=== PATIENT | female | born 1975 | race Caucasian/White ===

== ENCOUNTER → 2018-04-26 | Outpatient (CLI) | payer BC ==
--- NOTE | 2018-04-26 13:07 | MM ---
Reason for exam: screening (asymptomatic). Last mammogram was performed 3 years and 7 months ago. History: Patient has history of other cancer at age 37. Family history of breast cancer in father at age 55. Taking hormonal contraceptives for 20 years. Physical Findings: A clinical breast exam by your physician is recommended on an annual basis and results should be correlated with mammographic findings. MG Screening Mammo w CAD Bilateral CC and MLO view(s) were taken. Prior study comparison: September 23, 2014, bilateral MG screening mammo w CAD. The breast tissue is heterogeneously dense. This may lower the sensitivity of mammography. No suspicious calcifications are seen. Focal asymmetry central upper left breast 5.4cm from nipple. This finding is changed when compared with previous exams. ASSESSMENT: Incomplete: need additional imaging evaluation, BI-RAD 0 RECOMMENDATION: Special view mammogram of the left breast. If lesion persists on supplemental views, image directed ultrasound is recommended. [facility] will attempt to contact patient to return for supplemental views and ultrasound if indicated.
== END ==
LOC: RADMAMWWP 08:31
PROVIDERS: ATTEND Obstetrics & Gynecology
DX: Z12.31 Encounter for screening mammogram for malignant neoplasm of breast (principal); Z80.3 Family history of malignant neoplasm of breast
CPT/HCPCS: 77067

== ENCOUNTER → 2018-04-30 | Outpatient (CLI) | payer BC ==
--- NOTE | 2018-04-30 13:08 | MM ---
Reason for exam: additional evaluation requested from abnormal screening. Last mammogram was performed less than 1 month ago. History: Patient has history of other cancer at age 37. Family history of breast cancer in father at age 55. Taking hormonal contraceptives for 20 years. Physical Findings: Nurse Summary: 1cm nodule in the right breast at 10 o'clock (nurse mj). MG Work Up Mamm w CAD LT Spot compression CC and spot compression MLO view(s) were taken of the left breast. Prior study comparison: April 26, 2018, bilateral MG screening mammo w CAD. September 23, 2014, bilateral MG screening mammo w CAD. The breast tissue is heterogeneously dense. This may lower the sensitivity of mammography. Although distortion appears improved on spot CC precautionary ultrasound of the lateral left breast will be performed. These results were verbally communicated with the patient and result sheet given to the patient on 04/30/18. ASSESSMENT: Incomplete: need additional imaging evaluation, BI-RAD 0 RECOMMENDATION: Ultrasound of both breasts. (right palpable, left lateral)
--- NOTE | 2018-04-30 13:11 | USB ---
Reason for exam: additional evaluation requested from abnormal screening. History: Patient has history of other cancer at age 37. Family history of breast cancer in father at age 55. Taking hormonal contraceptives for 20 years. US Breast Workup Limited ONESIMO Right limited breast ultrasound including focal area of concern, retroareolar and axilla demonstrates a 6 x 3 x 6mm lesion at 9 o'clock, a 35 x 9 x 29mm cystic cluster at 10 o'clock BB and a 5 x 4 x 5mm mixed lesion at 12 o'clock. Left limited breast ultrasound including focal area of concern, retroareolar and axilla demonstrates a 5 x 5 x 3mm cystic cluster too small to characterize at 12 o'clock, a 20 x 9 x 18mm cystic lesion at 2 o'clock and a 6 x 3 x 4mm cystic lesion at the posterior nipple. All appear as benign cysts. These results were verbally communicated with the patient and result sheet given to the patient on 04/30/18. ASSESSMENT: Benign, BI-RAD 2 RECOMMENDATION: Return to routine screening mammogram schedule for both breasts.
== END | disposition home or self-care (01) ==
LOC: RADMAMWWP 08:58
PROVIDERS: ATTEND Obstetrics & Gynecology
DX: R92.8 Other abnormal and inconclusive findings on diagnostic imaging of breast (principal)
CPT/HCPCS: 77065

== ENCOUNTER → 2019-05-02 | Outpatient (CLI) | payer BC ==
--- NOTE | 2019-05-05 13:57 | MM ---
Reason for exam: screening (asymptomatic). Last mammogram was performed 1 year ago. History: Patient has history of other cancer at age 37. Family history of breast cancer in father at age 55. Taking hormonal contraceptives for 20 years. Physical Findings: A clinical breast exam by your physician is recommended on an annual basis and results should be correlated with mammographic findings. MG Screening Mammo w CAD Bilateral CC, MLO, and XCCL view(s) were taken. Prior study comparison: April 30, 2018, left breast MG work up mamm w CAD LT. April 26, 2018, bilateral MG screening mammo w CAD. Stable left upper outer global asymmetric density. No significant changes when compared with prior studies. ASSESSMENT: Negative, BI-RAD 1 RECOMMENDATION: Routine screening mammogram of both breasts in 1 year. The patient may qualify for alternating screening with breast MRI if lifetime risk is greater than 20%.
== END | disposition home or self-care (01) ==
LOC: RADMAMWWP 14:25
PROVIDERS: ATTEND Obstetrics & Gynecology
DX: Z12.31 Encounter for screening mammogram for malignant neoplasm of breast (principal)
CPT/HCPCS: 77067

== ENCOUNTER → 2019-12-18 | Outpatient (CLI) | payer BC ==
--- NOTE | 2019-12-22 09:05 | MM ---
Reason for exam: clinical finding. Last mammogram was performed 8 months ago. History: Patient has history of other cancer at age 37. Family history of breast cancer in father at age 55. Took hormonal contraceptives for 20 years. Indicated problem(s): lump or thickening in the left breast. Physical Findings: Nurse Summary: 2cm nodule in the left breast at 2 o'clock (nurse mj). MG 3D Diag Mammo W/Cad LT CC, MLO, and XCCL view(s) were taken of the left breast. Prior study comparison: May 02, 2019, bilateral MG screening mammo w CAD. April 30, 2018, left breast MG work up mamm w CAD LT. The breast tissue is heterogeneously dense. This may lower the sensitivity of mammography. Finding: There is a 40 mm circumscribed oval mass in the upper outer quadrant, posterior position of the left breast at areas of CT and palpable concern. These results were verbally communicated with the patient and result sheet given to the patient on 12/18/19. ASSESSMENT: Incomplete: need additional imaging evaluation, BI-RAD 0 RECOMMENDATION: Ultrasound of the left breast.
--- NOTE | 2019-12-22 09:06 | USB ---
Reason for exam: additional evaluation requested from abnormal screening. History: Patient has history of other cancer at age 37. Family history of breast cancer in father at age 55. Took hormonal contraceptives for 20 years. US Breast Limited LT Left limited breast ultrasound including focal area of concern, retroareolar and axilla demonstrates a 2.8 x 1.6 x 3.5cm lobular, cystic lesion at 2 o'clock BB increased in size from 2018 study with septation and a 1.0cm lymph node at the axilla tail. These results were verbally communicated with the patient and result sheet given to the patient on 12/18/19. ASSESSMENT: Benign, BI-RAD 2 RECOMMENDATION: Return to routine screening mammogram schedule for both breasts. Back on schedule for May 2020.
== END | disposition home or self-care (01) ==
LOC: RADMAMWWP 12:55
PROVIDERS: ATTEND Obstetrics & Gynecology
DX: N63.20 Unspecified lump in the left breast, unspecified quadrant (principal); R92.8 Other abnormal and inconclusive findings on diagnostic imaging of breast
CPT/HCPCS: 77061; 77065

== ENCOUNTER → 2020-05-24 | Outpatient (CLI) | payer BC ==
--- NOTE | 2020-05-26 09:05 | MM ---
Reason for exam: screening (asymptomatic). Last mammogram was performed 5 months ago. History: Patient has history of other cancer at age 37. Family history of breast cancer in father at age 55. Took hormonal contraceptives for 20 years. Physical Findings: A clinical breast exam by your physician is recommended on an annual basis and results should be correlated with mammographic findings. MG 3D Screening Mammo W/Cad Bilateral CC and MLO view(s) were taken. XCCL view(s) were taken of the left breast. Prior study comparison: December 18, 2019, left breast MG 3d diag mammo w/cad LT. May 02, 2019, bilateral MG screening mammo w CAD. The breast tissue is heterogeneously dense. This may lower the sensitivity of mammography. New nodularity in the anterior aspect of both breasts, two on the right and one on the left. Large 4.0cm cyst posterior 2 o'clock left breast is unchanged. ASSESSMENT: Incomplete: need additional imaging evaluation, BI-RAD 0 RECOMMENDATION: Special view mammogram of both breasts. (3D) Ultrasound of both breasts. [facility] will attempt to contact patient to return for supplemental views and ultrasound.
== END | disposition home or self-care (01) ==
LOC: RADMAMWWP 16:29
PROVIDERS: ATTEND Obstetrics & Gynecology
DX: Z12.31 Encounter for screening mammogram for malignant neoplasm of breast (principal); Z80.3 Family history of malignant neoplasm of breast
CPT/HCPCS: 77063; 77067

== ENCOUNTER → 2020-06-10 | Outpatient (CLI) | payer BC ==
--- NOTE | 2020-06-11 10:36 | MM ---
Reason for exam: additional evaluation requested from abnormal screening. Last mammogram was performed 1 month ago. History: Patient has history of other cancer at age 37. Family history of breast cancer in father at age 55. Took hormonal contraceptives for 20 years. Physical Findings: Nurse did not find any significant physical abnormalities on exam. MG 3D Work Up W/Cad ONESIMO Bilateral spot compression CC, spot compression MLO, and LM view(s) were taken. Prior study comparison: May 24, 2020, bilateral MG 3d screening mammo w/cad. December 18, 2019, left breast MG 3d diag mammo w/cad LT. Finding: There is a 10 mm equal density (isodense), circumscribed oval mass located 2 cm from the nipple in the anterior position of the right breast. There is a 2.7cm density at 2 o'clock 8cm from the nipple. These results were verbally communicated with the patient and result sheet given to the patient on 06/10/20. ASSESSMENT: Incomplete: need additional imaging evaluation, BI-RAD 0 RECOMMENDATION: Ultrasound of both breasts.
--- NOTE | 2020-06-11 10:38 | USB ---
Reason for exam: additional evaluation requested from abnormal screening. History: Patient has history of other cancer at age 37. Family history of breast cancer in father at age 55. Took hormonal contraceptives for 20 years. US Breast Workup Limited ONESIMO Right limited breast ultrasound including focal area of concern, retroareolar and axilla demonstrates a 0.7 x 0.4 x 0.6cm cystic cluster at 12 o'clock. Left limited breast ultrasound including focal area of concern, retroareolar and axilla demonstrates a 2.8 x 1.6 x 2.7cm cystic cluster at 2 o'clock and a 1.1 x 0.6 x 0.7cm cystic lesion at 3 o'clock. These results were verbally communicated with the patient and result sheet given to the patient on 06/10/20. ASSESSMENT: Benign, BI-RAD 2 RECOMMENDATION: Return to routine screening mammogram schedule for both breasts.
== END | disposition home or self-care (01) ==
LOC: RADMAMWWP 14:53
PROVIDERS: ATTEND Obstetrics & Gynecology
DX: R92.8 Other abnormal and inconclusive findings on diagnostic imaging of breast (principal)
CPT/HCPCS: 77062; 77066

== ENCOUNTER → 2021-06-07 | Outpatient (CLI) | payer BC ==
--- NOTE | 2021-06-09 12:13 | MM ---
Reason for exam: screening (asymptomatic). Last mammogram was performed 1 year ago. History: Patient has history of other cancer at age 37. Family history of breast cancer in father at age 55. Took hormonal contraceptives for 20 years. Physical Findings: A clinical breast exam by your physician is recommended on an annual basis and results should be correlated with mammographic findings. MG 3D Screening Mammo W/Cad Bilateral CC and MLO view(s) were taken. Prior study comparison: May 24, 2020, bilateral MG 3d screening mammo w/cad. December 18, 2019, left breast MG 3d diag mammo w/cad LT. May 02, 2019, bilateral MG screening mammo w CAD. April 26, 2018, bilateral MG screening mammo w CAD. The breast tissue is heterogeneously dense. This may lower the sensitivity of mammography. There is chronic nodularity in the right breast. No significant changes when compared with prior studies. ASSESSMENT: Benign, BI-RAD 2 RECOMMENDATION: Routine screening mammogram of both breasts in 1 year.
== END | disposition home or self-care (01) ==
LOC: RADMAMWWP 15:03
PROVIDERS: ATTEND Obstetrics & Gynecology
DX: Z12.31 Encounter for screening mammogram for malignant neoplasm of breast (principal); Z80.3 Family history of malignant neoplasm of breast
CPT/HCPCS: 77063; 77067

== ENCOUNTER → 2022-06-08 | Outpatient (CLI) | payer BC ==
--- NOTE | 2022-06-09 09:03 | MM ---
Reason for Exam: Screening (asymptomatic). Last screening mammogram was performed 12 month(s) ago. Patient History: Menarche at age 14. First Full-Term at age 29. Premenopausal. Other cancer, age 37. Hormonal Contraceptives for 20 years until age 44. Father had breast cancer, age 55. Last menstrual period: 06/02/2022 Risk Values: Chiquis 5 year model risk: 0.9%. NCI Lifetime model risk: 10.7%. Prior Study Comparison: 05/24/2020 Bilateral Screening Mammogram, [facility]. 06/10/2020 Bilateral Diagnostic Mammogram, [facility]. 06/07/2021 Bilateral Screening Mammogram, [facility]. Tissue Density: The breast tissue is heterogeneously dense. This may lower the sensitivity of mammography. Findings: Analyzed By CAD. There is no suspicious group of microcalcifications in either breast. There is a well-circumscribed ovoid 1.5 cm mass within the upper outer right breast at middle depth with additional 0.7 cm circumscribed round mass within the upper outer right breast anterior depth. There is a high density well-circumscribed ovoid mass within the upper outer left breast measuring 0.8 cm at middle depth. Overall Assessment: Incomplete: need additional imaging evaluation, BI-RAD 0 Management: Diagnostic Breast Ultrasound of both breasts. A clinical breast exam by your physician is recommended on an annual basis and results should be correlated with mammographic findings. [facility] will attempt to contact patient to return for supplemental views and ultrasound if indicated. Electronically signed and approved by: Claude Quarles D.O.
== END | disposition home or self-care (01) ==
LOC: RADMAMWWP 15:51
PROVIDERS: ATTEND Obstetrics & Gynecology
DX: Z12.31 Encounter for screening mammogram for malignant neoplasm of breast (principal); Z80.3 Family history of malignant neoplasm of breast
CPT/HCPCS: 77063; 77067

== ENCOUNTER → 2022-06-21 | Outpatient (CLI) | payer BC ==
--- NOTE | 2022-06-21 11:15 | USB ---
Reason for Exam: Additional evaluation requested from abnormal screening. Patient History: Menarche at age 14. First Full-Term at age 29. Premenopausal. Other cancer, age 37. Hormonal Contraceptives for 20 years until age 44. Father had breast cancer, age 55. Risk Values: Chiquis 5 year model risk: 0.9%. NCI Lifetime model risk: 10.7%. Technique: Method: Targeted. Patient Position: Supine. Prior Study Comparison: 06/10/2020 Bilateral Diagnostic Mammogram, [facility]. 06/07/2021 Bilateral Screening Mammogram, [facility]. 06/08/2022 Bilateral MG 3D screening mammo w/cad, [facility]. Findings: The upper outer quadrant of both breasts, the axilla of both breasts and the retroareolar of both breasts were scanned. Right 900 8CFN there is a 1.6 x 1.5 x 0.6 ovoid simple cyst. Right 1200 3CFN 0.9 x 0.6 x 1.0cm simple cyst. Left 200 7CFN there is a 0.7 x 0.6 x 0.6cm simple cyst. At the 12:00 position 3 cm from the nipple there is a benign-appearing cyst measuring 0.9 x 0.6 x 1.0 cm. This is larger than comparison. At the 9:00 position 8 cm nipple there is a benign-appearing simple cyst measuring 1.5 x 0.6 x 1.6 cm. This is not within the [id number] on the prior study. Within the left breast at the 2:00 position 7 cm the nipple is a simple appearing cyst measuring 0.7 x 0.6 x 0.6 cm. Previous large cysts in this region are not evident. Findings correspond to mammographic findings. Overall Assessment: Benign, BI-RAD 2 Management: Screening Mammogram of both breasts in 1 year. A clinical breast exam by your physician is recommended on an annual basis and results should be correlated with mammographic findings. This exam should not preclude additional follow-up of suspicious palpable abnormalities. Results were given to the patient verbally at the time of exam. Electronically signed and approved by: Aftab Higgins D.O. Radiologis
== END | disposition home or self-care (01) ==
LOC: RADUSWWP 10:07
PROVIDERS: ATTEND Obstetrics & Gynecology
DX: R92.8 Other abnormal and inconclusive findings on diagnostic imaging of breast (principal); Z80.3 Family history of malignant neoplasm of breast

== ENCOUNTER → 2023-03-06 | Outpatient (CLI) | payer BC | END | disposition home or self-care (01) | LOC: LABWHC1 09:43 | PROVIDERS: ATTEND Obstetrics & Gynecology | DX: Z53.9 Procedure and treatment not carried out, unspecified reason (principal) ==

== ENCOUNTER 2023-03-14 05:42 | Inpatient (IN) | payer BC ==
[2023-03-12 14:31] VITALS: BMI 32.3
--- NOTE | 2023-03-13 12:30 | P.HPOB ---
History of Present Illness H&P Date: 03/13/23 Chief Complaint: Persistent dysfunctional uterine bleeding, uterine fibroids This patient is a pleasant 47-year-old 2 para 2 female whose had a long history of dysfunctional uterine bleeding and known uterine fibroids. Patient has had an endometrial ablation in 2016 that initially helped her bleeding however fibroids have persisted and the bleeding has become intolerable. She is also tried oral contraceptives again without relief. Bleeding is such that she's become anemic and required an iron transfusion. Most recent ultrasound done in August of this year showed the uterus to be 13 week size with 2 large fibroids 6.8 cm and 5 cm both that appear to be in the fundal region. 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 There is been no evidence of recurrence since that time. Review of Systems Genitourinary: Reports as per HPI, Reports abnormal vaginal bleeding Menstruation: Reports as per HPI, Reports menses 8 or > days, Reports menses variable Past Medical History Past Medical History: Blood Disorder, Cancer, Thyroid Disorder Additional Past Medical History / Comment(s): Hx Skin Cancer/[place] Fibroid Sarcoma 2013, with removal and radiation. Hx Anemia, had Iron Infusion Aug 2022. History of Any Multi-Drug Resistant Organisms: None Reported Additional Past Surgical History / Comment(s): Removal of Dermatofibrosarcoma on abdomen. Past Anesthesia/Blood Transfusion Reactions: No Reported Reaction Past Psychological History: No Psychological Hx Reported Smoking Status: Never smoker Past Alcohol Use History: None Reported, Rare Past Drug Use History: None Reported - Past Family History Mother Family Medical History: No Reported History Father Family Medical History: Cancer Medications and Allergies Home Medications Medication Instructions Recorded Confirmed Type Levothyroxine Sodium [Synthroid] 75 mcg PO QAM 03/12/23 03/12/23 History Allergies Allergy/AdvReac Type Severity Reaction Status Date / Time No Known Allergies Allergy Verified 03/12/23 14:18 Exam - OBG Physical Exam Abdomen: bowel sounds normal, no diffuse tenderness, no bruit present, no guarding noted, no hepatomegaly, no splenomegaly, no mass Vulva: both: normal Vagina: normal moisture, no discharge Cervix: no lesion, no discharge Uterus: enlarged (Uterus is approximately 13 week size) Results Ultrasound as above. Assessment and Plan Assessment: This is a pleasant 47-year-old 2 para 2 female with large uterine fibroids, refractory dysfunctional bleeding despite NovaSure endometrial ablation and oral contraceptives who presents for definitive surgery. Patient's fibroids are large and due to her previous radiation therapy to her abdomen she'll require abdominal hysterectomy. She also understands that we need to do a vertical skin incision because the area of her radiation therapy is on the left lower quadrant where we would normally put a Pfannenstiel skin incision. Plan at this time is vertical skin incision with total abdominal hysterectomy and bilateral salpingectomy. We discussed her ovaries and she wishes to proceed with ovarian conservation at this time unless they appear abnormal. I had a long discussion with her about the risks of the surgery including risks of infection, bleeding, possible injury to bowel, bladder, ureters, and/or other organs. She understands if she had any injury to urinary tract she require prolonged catheterization or more surgery. She also understands she is at increased risk of nonhealing incision due to the radiation therapy. We are going to do our best to do an incision vertically therefore she has a higher chance of this healing, this is not in the area of the radiation. Patient also understands increased risk of DVT and pulmonary embolism. All the patient's questions are answered and a written consent is obtained. (1) Dysfunctional uterine bleeding Status: Acute Code(s): N93.8 - OTHER SPECIFIED ABNORMAL UTERINE AND VAGINAL BLEEDING SNOMED Code(s): 18287291657369 (2) Secondary anemia Status: Acute Code(s): D64.9 - ANEMIA, UNSPECIFIED SNOMED Code(s): 833318940 (3) Uterine fibroid Status: Acute Code(s): D25.9 - LEIOMYOMA OF UTERUS, UNSPECIFIED SNOMED Code(s): 92540807
[2023-03-14] MEDS ORDERED: droPERidol 5 MG/2 ML VIAL IVP ONE (06:01)
[2023-03-14] MEDS ORDERED: ONDANSETRON 4 MG/2 ML VIAL IVP ONE (06:01)
[2023-03-14] MEDS ORDERED: LIDOCAINE 1% (10MG/ML) FOR IV START INTRADERMA PRN (06:01)
[2023-03-14] MEDS ORDERED: SCOPOLAMINE 1 MG/72 HR PATCH TRANSDERM ONE (06:01)
[2023-03-14] MEDS ORDERED: DEXAMETHASONE SOD PHOSPHATE 4 MG/ML 1 ML VIAL IV ONE (06:01)
[2023-03-14] MEDS ORDERED: LACTATED RINGERS 1,000 ML IV SCH (06:01)
[2023-03-14] MEDS ORDERED: MIDAZOLAM 2 MG/2 ML VIAL IVP ONE (07:00)
[2023-03-14] MEDS ORDERED: fentaNYL (PF) 50 MCG/ML 2 ML AMP IVP ONE (07:00)
[2023-03-14] MEDS ORDERED: HYDROmorphone 0.5 MG/0.5 ML SYRINGE IVP PRN (07:00)
[2023-03-14] MEDS ORDERED: NEOSTIGMINE 1 MG/ML 10 ML VIAL ONE (07:28)
[2023-03-14] MEDS ORDERED: MIDAZOLAM 2 MG/2 ML VIAL ONE (07:28)
[2023-03-14] MEDS ORDERED: SUCCINYLCHOLINE CHLORIDE 200 MG/10 ML VIAL IV ONE (07:28)
[2023-03-14] MEDS ORDERED: KETAMINE 10 MG/ML 20 ML VIAL ONE (07:28)
[2023-03-14] MEDS ORDERED: fentaNYL (PF) 50 MCG/ML 2 ML AMP ONE (07:28)
[2023-03-14] MEDS ORDERED: ROCURONIUM 10 MG/ML (5 ML VIAL) IV ONE (07:28)
[2023-03-14] MEDS ORDERED: PROPOFOL 10 MG/ML 20 ML VIAL IV ONE (07:28)
[2023-03-14] MEDS ORDERED: LIDOCAINE 2% INJ 20 MG/ML (2 ML VIAL) ONE (07:28)
[2023-03-14] MEDS ORDERED: GLYCOPYRROLATE 0.2 MG/ML 2 ML VIAL ONE (07:28)
[2023-03-14] MEDS ORDERED: MORPHINE SULFATE (PF) 0.3 MG/0.3 ML SYR ONE (07:28)
[2023-03-14] MEDS ORDERED: LACTATED RINGERS 1,000 ML IV ONE (08:17)
[2023-03-14] MEDS ORDERED: diphenhydrAMINE 50 MG/ML 1 ML VIAL IVP PRN (10:19)
[2023-03-14] MEDS ORDERED: ONDANSETRON 4 MG/2 ML VIAL IVP PRN (10:19)
[2023-03-14] MEDS ORDERED: SIMETHICONE 80 MG CHEWABLE PO PRN (10:19)
[2023-03-14] MEDS ORDERED: Acetaminophen-Codeine 300-30mg TAB PO PRN (10:19)
[2023-03-14] MEDS: KETOROLAC 15 MG/ML 1 ML VIAL IVP PRN ×3 (10:25→21:57)
--- NOTE | 2023-03-14 11:28 | P.ANPRN ---
Procedure Note - Anesthesia - Epidural/Spinal Spinal Time Out Performed: Yes Date of Procedure: 03/14/23 Procedure Start Time: 06:59 Procedure Stop Time: 07:04 Location of Patient: PreOp Indication: Acute Post-Operative Pain, Requested by Surgeon (zaid) Sedation Type: Sedate with meaningful contact maintained Preparation: Sterile Prep Number of Attempts: 1 Position: Sitting Catheter: None Needle Guage: 25 Injectate: fentanyl 25mcg duramorph 300mg Blood Aspirated: No Pain Paresthesia on Injection Noted: No Events: Uneventful and Well Tolerated
--- NOTE | 2023-03-14 12:33 | P.OP ---
Date of Procedure: 03/14/23 Preoperative Diagnosis: #1: Refractory dysfunctional bleeding. #2: Large uterine fibroids. #3: Previous radiation to lower abdomen. #4: History of secondary anemia Postoperative Diagnosis: Same Procedure(s) Performed: Exploratory laparotomy with total abdominal hysterectomy Anesthesia: JOSE Surgeon: Bhavik Webb Estimated Blood Loss (ml): 1,000 Pathology: other (Uterus with detached cervix) Condition: stable Disposition: floor Indications for Procedure: Please see dictated H&P for intimate details of this patient's admission. In brief summary this is a pleasant 47-year-old 2 para 2 female with long- standing dysfunctional bleeding and known uterine fibroids that have been refractory to conservative measures including endometrial ablation and oral contraceptives. Patient's been having such abnormal bleeding that she required iron transfusion for anemia. She is also having pain from the large uterus is requesting definitive surgery at this time. 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 She also understands the risks of the surgery including risks of infection, bleeding, possible injury bowel, bladder, ureter, vessels, and other organs. All the patient's questions are answered and a written consent is obtained. Operative Findings: This patient had a 14 week size uterus with numerous fibroids both in the fundal and lateral uterus. Patient's fallopian tubes and ovaries appear normal. Upper abdomen grossly appears normal Description of Procedure: This patient is taken to the operating room where she is laid in the supine position. She subsequently undergoes general endotracheal anesthesia without incident. With an adequate level of anesthesia she has a vaginal and abdominal prep and drape. A Mckinnon catheter is placed to straight drain. After the appropriate timeout, a vertical skin incision is made from the symphysis pubis to just below the umbilicus. It is quite indurated on the left lower part of the incision from the previous radiation therapy. Carefully I take the scalpel down to the fascia and the fascia is scored and then extended superior and inferior without difficulty. The peritoneum was then identified and entered sharply. Peritoneal incision extended superior and inferior without difficulty. At this time I lower the pelvis the uterus is very bulky and wide however it is able to be mobilized. The bilateral fallopian tubes and ovaries are normal. [place] retractor is placed. The bowels carefully packed up out of the pelvis with wet laparotomy sponges. I then placed 2 curved Benita's across the cornea of the uterus. The uterus is externalized is lifted out of the pelvis as best a s possible. Curved Heaneys are placed across the uterine ovarian ligaments. These were transected and suture ligated with 0 Vicryl. This is quite difficult due to the bulky size of the uterus and the fact these fibroids do protrude out laterally. She does bleed quite vigorously and careful attention is to controlling this bleeding. Serial clamps are done until he get down to the level of the lower uterine segment. At this time it is felt that his best to amputate the uterus at the lower uterine segment to best visualize the lower part of the cervix. Using Bovie cautery amputate the uterus at the lower uterine segment. This is handed off the field. 2 cokers are placed on the cervical stump. Careful dissection is done and the bladder is pushed off the lower uterine segment and off the cervix. Serial clamps are then done at this time with Liam clamps. These are transected and suture ligated with 0 Vicryl interrupted fashion. The cervix is then removed intact and handed off to pathology. The vaginal cuff was closed with a [id number] stitch. There is an area near the lower uterine segment where the bladder wall appears thin, however there is no defect. This is reinforced with 3-0 Vicryl suture interrupted fashion and good reinforcement is made. There is also some bleeding over on the patient's right lower side and this is isolated with a Liam clamp and suture ligated with 0 Vicryl. Good hemostasis is noted. With this done copious irrigation is done. There is some oozing but for the most part excellent hemostasis is noted. For added hemostasis I did place some surgical snow into the cuff area. Final inspection of the adnexa and cuff at this time showed it to be hemostatic. Due to the close proximity of the fallopian tubes to the pelvic sidewalls it was decided at this time to leave the fallopian tubes. Both fallopian tubes and ovaries appeared normal. This time the sponges are removed and counts are correct. The Kather[place] retractor is removed. Final inspection shows excellent hemostasis. The parietal peritoneum was then closed using a 0 Vicryl running fashion. The fascia is then closed using 0 PDS in a running fashion as well. The fascia appears intact and hemostatic. The subcutaneous tissues and closed using a 3-0 Vicryl. Skin is and closed as best as possible using marysol. Once again is noted the lower part of the incision is near the area of radiation therapy and this area is quite indurated but reapproximated. All counts are correct 3. The Mckinnon catheter is draining copious amount of clear urine. There are no complications. Patient is awakened from anesthesia and taken to the recovery room in satisfactory condition.
[2023-03-14] MEDS: LACTATED RINGERS 1,000 ML IV SCH ×2 (15:53→21:59)
[2023-03-14] MEDS: SENNOSIDES-DOCUSATE SODIUM 1 EACH TAB PO SCH (16:07)
[2023-03-15] MEDS: SENNOSIDES-DOCUSATE SODIUM 1 EACH TAB PO SCH ×3 (00:19→21:31)
[2023-03-15] MEDS: KETOROLAC 15 MG/ML 1 ML VIAL IVP PRN ×2 (04:09→10:25)
--- NOTE | 2023-03-15 06:19 | P.PN ---
Progress Note - Text Progress Note Date: 03/15/23 Post operative day #1. Patient rested overnight without complaints. Vital signs are stable and she is afebrile. Incision is intact and dry. She's having excellent urine output. CBC is pending at time of this dictation. Plan today is to discontinue her catheter encourage urination. We'll encourage ambulation. Check a CBC. I'm assuming her hemoglobin is going to be low due to the amount blood loss therefore we will start her on some iron sulfate prophylactically. Advance diet and allow the patient to shower.
[2023-03-15 06:30] LABS: Basophils % (A) 0 %; Eosinophils # (A) 0.1 k/uL (0-0.7); Eosinophils % (A) 1 %; HCT 35.3 % (34.0-46.0); HGB 12.2 gm/dL (11.4-16.0); Lymphocytes # (A) 1.5 k/uL (1.0-4.8); Lymphocytes % (A) 14 %; MCHC 34.5 g/dL (31.0-37.0); MCV 92.9 fL (80.0-100.0); Mean Platelet Volume 7.5; Monocytes # (A) 0.6 k/uL (0-1.0); Monocytes % (A) 5 %; Neutrophils # (A) 8.8 k/uL (1.3-7.7); Neutrophils % (A) 79 %; Platelet Count 344 k/uL (150-450); RDW 12.1 % (11.5-15.5)
[2023-03-15] MEDS ORDERED: ACETAMINOPHEN TAB 325 MG TAB PO PRN (07:22)
[2023-03-15] MEDS: FERROUS SULFATE 325 MG TAB PO SCH ×2 (08:26→19:01)
[2023-03-15] MEDS: LACTATED RINGERS 1,000 ML IV SCH ×2 (08:27→11:56)
[2023-03-15] MEDS: LEVOTHYROXINE 75 MCG TAB PO SCH (10:24)
--- NOTE | 2023-03-15 11:15 | P.PN ---
Progress Note - Text Progress Note Date: 03/15/23 (366) Anesthesia Postop day 1 Subjective: Status Post total abdominal hysterectomy with Duramorph. Patient seen and examined. Doing well without complaint. VAS 4 out of 10. No nausea vomiting or pruritus. Afebrile. Gross lower extremity strength intact. Without apparent anesthetic complications. Objective: Vital signs reviewed Heart: Regular Rate Lungs: Good chest excursion Abdomen: Appears nondistended Assessment: Status post total abdominal hysterectomy with Duramorph postop day 1 Plan: Continue current care with your medical management.
[2023-03-15] MEDS: IBUPROFEN 600 MG TAB PO PRN ×2 (15:29→21:31)
[2023-03-15] MEDS: Acetaminophen-Codeine 300-30mg TAB PO PRN (17:18)
[2023-03-16] MEDS: Acetaminophen-Codeine 300-30mg TAB PO PRN ×2 (00:18→08:14)
[2023-03-16] MEDS: IBUPROFEN 600 MG TAB PO PRN ×2 (04:03→10:25)
--- NOTE | 2023-03-16 06:44 | P.PN ---
Progress Note - Text Progress Note Date: 03/16/23 Postoperative day #2. Patient is resting without new complaints. Vital signs are stable she's afebrile. Incision is intact and dry. CBC yesterday was normal with an appropriate decrease in her hemoglobin. Patient's tolerating regular diet, urinating, ambulating without difficulty. Patient wishes to go home today. Plan today is to continue routine postoperative care. She'll follow up with me on Sunday for staple removal.
--- NOTE | 2023-03-16 06:52 | P.DS ---
Providers Date of admission: 03/14/23 05:42 Expected date of discharge: 03/16/23 Attending physician: Bhavik Webb Primary care physician: Aftab Solis, DO - Discharge Diagnosis(es) (1) Dysfunctional uterine bleeding Current Visit: No Status: Acute (2) Secondary anemia Current Visit: No Status: Acute (3) Uterine fibroid Current Visit: No Status: Acute Hospital Course: Please see dictated H&P for intimate details of this patient's admission. In brief summary this is a pleasant 47-year-old 2 para 2 female admitted for exploratory laparotomy and total abdominal hysterectomy secondary to dysfunctional uterine bleeding, large uterine fibroids. Patient underwent an exploratory laparotomy and total abdominal hysterectomy. Please see dictated operative note. Postoperatively the patient's did well and by postoperative #2 she was ambulating, urinating and tolerating regular diet. Patient is felt to be stable for discharge home follow up with me in 5 days for staple removal. Procedures: Exploratory laparotomy and total abdominal hysterectomy Patient Condition at Discharge: Good Plan - Discharge Summary Discharge Rx Participant: Yes New Discharge Prescriptions: New Ibuprofen [Motrin] 600 mg PO Q6HR PRN #40 tab PRN Reason: Mild Discomfort Acetaminophen-Codeine 300-30mg [Tylenol w/codeine #3] 2 each PO Q6HR PRN #24 tab PRN Reason: Severe Pain (Scale 7 To 10) No Action Levothyroxine Sodium [Synthroid] 75 mcg PO QAM Discharge Medication List Levothyroxine Sodium [Synthroid] 75 mcg PO QAM 03/12/23 [History] Acetaminophen-Codeine 300-30mg [Tylenol w/codeine #3] 2 each PO Q6HR PRN #24 tab 03/16/23 [Rx] Ibuprofen [Motrin] 600 mg PO Q6HR PRN #40 tab 03/16/23 [Rx] Follow up Appointment(s)/Referral(s): Bhavik Webb MD [STAFF PHYSICIAN] - 03/20/23 11:15 am (Please come to the office on March 20 at 11:15 for staple removal.) Patient Instructions/Handouts: Exploratory Laparotomy (DC), Hysterectomy (DC) Activity/Diet/Wound Care/Special Instructions: No heavy lifting or strenuous activity for 6 weeks. Please call if any fever, chills, excessive vaginal bleeding, and/or abdominal pain. Discharge Disposition: HOME SELF-CARE
[2023-03-16] MEDS: LEVOTHYROXINE 75 MCG TAB PO SCH (06:57)
[2023-03-16 09:02] VITALS: BP 143/87; PULSE 84; RESP 14; TEMP 98.2
[2023-03-16] MEDS: SENNOSIDES-DOCUSATE SODIUM 1 EACH TAB PO SCH (10:25)
[2023-03-16] MEDS: FERROUS SULFATE 325 MG TAB PO SCH (10:25)
== END 2023-03-16 12:25 | disposition home or self-care (01) | DRG 743 ==
LOC: 2ORMAIN 05:42 → 4FBP 09:37
PROVIDERS: ADMIT Obstetrics & Gynecology; ATTEND Obstetrics & Gynecology
PROC: 0UT90ZZ Resection of Uterus, Open Approach (ICD-10-PCS; principal; 2023-03-14 07:30)
PROC: 0UB70ZZ Excision of Bilateral Fallopian Tubes, Open Approach (ICD-10-PCS; principal; 2023-03-14 07:30)
DX: D25.9 Leiomyoma of uterus, unspecified (principal); D64.9 Anemia, unspecified; Z28.310 Unvaccinated for COVID-19; N93.8 Other specified abnormal uterine and vaginal bleeding; E07.9 Disorder of thyroid, unspecified; Z79.890 Hormone replacement therapy; Z85.828 Personal history of other malignant neoplasm of skin; Z92.3 Personal history of irradiation
CPT/HCPCS: 81025; 85025; 86850; 86900; 86901; 88307

== ENCOUNTER → 2023-06-11 | Outpatient (CLI) | payer BC ==
--- NOTE | 2023-06-12 21:23 | MM ---
Reason for Exam: Screening (asymptomatic). Last screening mammogram was performed 12 month(s) ago. Patient History: Menarche at age 14. First Full-Term at age 29. Hysterectomy at age 47. Premenopausal. Other cancer, age 37. Hormonal Contraceptives for 20 years until age 44. Father had breast cancer, age 55. Risk Values: Chiquis 5 year model risk: 0.9%. NCI Lifetime model risk: 10.6%. Prior Study Comparison: 06/10/2020 Bilateral Diagnostic Mammogram, [facility]. 06/07/2021 Bilateral Screening Mammogram, [facility]. 06/08/2022 Bilateral MG 3D screening mammo w/cad, [facility]. Tissue Density: The breast tissue is heterogeneously dense. This may lower the sensitivity of mammography. Findings: Analyzed By CAD. Fluctuating nodularity within the upper outer quadrant of both breasts. Nodules have enlarged in the interval. Cysts are suspected but further ultrasound evaluation is recommended. Otherwise, no significant change. Overall Assessment: Incomplete: need additional imaging evaluation, BI-RAD 0 Management: Diagnostic Breast Ultrasound of both breasts. Upper outer quadrants for suspected underlying enlarging cyst. [facility] will attempt to contact patient to return for supplemental views and ultrasound if indicated. Electronically signed and approved by: Sabine Small M.D. Radiologist
== END | disposition home or self-care (01) ==
LOC: RADMAMWWP 15:50
PROVIDERS: ATTEND Obstetrics & Gynecology
DX: Z12.31 Encounter for screening mammogram for malignant neoplasm of breast (principal); Z80.3 Family history of malignant neoplasm of breast
CPT/HCPCS: 77063; 77067

== ENCOUNTER → 2023-06-20 | Outpatient (CLI) | payer BC ==
--- NOTE | 2023-06-20 11:42 | USB ---
Reason for Exam: Additional evaluation requested from abnormal screening. Patient History: Menarche at age 14. First Full-Term at age 29. Hysterectomy at age 47. Premenopausal. Other cancer, age 37. Hormonal Contraceptives for 20 years until age 44. Father had breast cancer, age 55. Risk Values: Chiquis 5 year model risk: 0.9%. NCI Lifetime model risk: 10.6%. Prior Study Comparison: 06/07/2021 Bilateral Screening Mammogram, [facility]. 06/08/2022 Bilateral MG 3D screening mammo w/cad, [facility]. 06/21/2022 Bilateral US breast workup limited ONESIMO, [facility]. 06/11/2023 Bilateral MG 3D screening mammo w/cad, [facility]. Findings: The upper outer quadrant of both breasts, the axilla of both breasts and the retroareolar of both breasts were scanned. Stable benign-appearing cysts are noted bilaterally without significant change. No solid masses appreciated.. Overall Assessment: Benign, BI-RAD 2 Management: Screening Mammogram of both breasts in 1 year. A clinical breast exam by your physician is recommended on an annual basis and results should be correlated with mammographic findings. This exam should not preclude additional follow-up of suspicious palpable abnormalities. Results were given to the patient verbally at the time of exam. Electronically signed and approved by: Rajinder Win M.D. Radiologis
== END | disposition home or self-care (01) ==
LOC: RADUSWWP 10:59
PROVIDERS: ATTEND Obstetrics & Gynecology
DX: R92.8 Other abnormal and inconclusive findings on diagnostic imaging of breast (principal); Z80.3 Family history of malignant neoplasm of breast